=== PATIENT | female | born 1940 | race Caucasian/White ===

== ENCOUNTER 2024-04-17 18:38 | Inpatient (IN) | payer MEDICARE, SELFPAY ==
[2024-04-17] VITALS (26 sets, daily range): BP systolic 127–176; BP diastolic 84–101; PULSE 98–112; RESP 12–27; TEMP 36.7–36.8; O2SAT 80–100
--- NOTE | ~2024-04-17 | CT_ITS ---
CT chest high resolution wo co Ordering provider: Bryan Daniels MD History: 84 years Female with . F/u XR finding . Comparison: None. Technique: CT chest without IV contrast. Radiation reduction technique utilized. DLP is 144.09 mGy-cm. FINDINGS: VISUALIZED THORACIC INLET: Normal. MEDIASTINUM: Aorta/coronary arteries: Mild atheromatous disease. Heart/other: The heart is not enlarged. Lymph nodes: No mediastinal or hilar adenopathy. Prominent left hilum with possible lymphadenopathy. LUNGS: Atelectasis seen in the area distal to the left hilum Suggestive of atelectasis No pulmonary n odules or masses. No pneumothorax. Highly suggestive left mid diaphragmatic hernia is noted with etienne iation of the stomach and large bowel in the left lower thorax area. Underlying emphysematous changes. Dependent atelectatic changes. VISUALIZED UPPER ABDOMEN: Cholelithiasis. Possible mass in the right kidney area which measures 4.9 x 2.8 cm. Otherwise, the visualized upper abdomen is normal. MUSCULOSKELETAL: Soft tissues: The superficial soft tissues are normal. Bones: Age appropriate degenerative changes of the spine. . Healed ribs fractures seen in the right s econd, third, fourth and fifth ribs. Levoscoliosis. IMPRESSION: 1. 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 Possibility of eventration of the diaphragm is less likely. 2. Slightly prominent left hilum with adjacent atelectasis changes. 3. Cholelithiasis. 4. Possible mass in the right kidney. Further evaluation advised. Reviewed, dictated and finalized at location A.
--- NOTE | ~2024-04-17 | XR_ITS ---
XR chest 1V Ordering provider: Bryan Daniels MD History: 84 years Female with . LEFT HIP FX . Comparison: None. FINDINGS: MEDIASTINUM: The cardiac silhouette is slightly enlarged. Prominent brittnee. LUNGS: No infiltrates, effusions or pneumothorax. Prominent markings bilaterally. Elevated left hemidiaphragm. OTHER: Lucency is seen below the left hemidiaphragm which may be emphysematous bulla but distended st omach cannot be excluded. Further evaluation advised.. Degenerative changes of the spine. S-shaped sc oliosis. IMPRESSION: Lucency in the left lower lobe area and upper abdomen which may be emphysematous bulla. Distended sto mach cannot be excluded although less likely. Further evaluation advised. Reviewed, dictated and finalized at location A. IMPRESSION: Lucency in the left lower lobe area and upper abdomen which may be emphysematou s bulla. Distended stomach cannot be excluded although less likely. Further ethel luation advised.
--- NOTE | ~2024-04-17 | XR_ITS ---
XR hip LT 2V w AP pelvis Ordering provider: Bryan Daniels MD History: . FALL, L LEG SHORTENING AND ROTATION . Comparison: None. FINDINGS: BONES: Left intertrochanteric fracture. Old fracture in the right pubic bone. HIP JOINT SPACES: Bilateral hip osteoarthritic changes with narrowing of the joint space. SACROILIAC JOINT SPACES/LUMBAR SPINE: The sacroiliac joint spaces are narrowed bilaterally suggestive of osteoarthritic changes. Mild degenerative changes of the visualized lower lumbar spine. PUBIC SYMPHYSIS: Pubic symphysitis. SOFT TISSUES: Normal. IMPRESSION: No left intertrochanteric fracture. Right pubic bone fracture which is most likely old. Clinical correlation advised. Reviewed, dictated and finalized at location A. IMPRESSION: No left intertrochanteric fracture. Right pubic bone fracture which is most likely old. Clinical correlation advise sara
--- NOTE | ~2024-04-17 | XR_ITS ---
XR surgery orthopedic Indication: Left femoral intertrochanteric nail placement TECHNIQUE: Fluoroscopy used during Left femoral intertrochanteric nail placement performed by [Michael Brar MD] on 04/18/2024. 8 fluoroscopic images performed. 32 seconds of fluoroscopy. FINDINGS: Initial images demonstrate intertrochanteric fracture. Correlate with procedure note. IMPRESSION: Fluoroscopy used during Left femoral intertrochanteric nail placement. Reviewed, dictated and finalized at location B. IMPRESSION: Fluoroscopy used during Left femoral intertrochanteric nail placeme nt.
--- NOTE | 2024-04-17 19:41 | ECG_ITS ---
Test Date: 2024-04-17 21:00:09 Measurements Intervals [place] Rate: 103 P: 58 NM: 137 QRS: 24 QRSD: 91 T: 31 QT: 317 QTc: 416 Interpretive Statements SINUS TACHYCARDIA WITH OCCASIONAL SUPRAVENTRICULAR PREMATURE COMPLEXES BASELINE ARTIFACT- I, III, AVR, AVL, AVF, V5 BORDERLINE ECG No previous ECG available for comparison Electronically Signed On 04-18-2024 08:37:41 CDT by Dinesh Berumen D.O.
[2024-04-17] MEDS: ACETAMINOPHEN 500 MG TABLET 1000 MG PO (20:38)
--- NOTE | 2024-04-17 20:41 | ED.GENADULT ---
HPI - General Adult General Chief complaint: Extremity Injury, Lower Stated complaint: LEFT HIP FX Time Seen by Provider: 04/17/24 18:54 History of Present Illness HPI narrative: This is a pleasant 84-year-old female presenting to ED after a fall. She slipped on a carpet on her house and fell onto her left hip. She was unable to get up and crawled around her apartment so she called for help. This time patient has pain in her left hip no other injuries. She did not strike her head. She is not on blood thinners. Related Data Home Medications Medication Instructions Recorded Confirmed baclofen 5 mg tablet mg 04/17/24 04/17/24 diclofenac sodium 75 mg mg PO 04/17/24 tablet,delayed release folic acid 1 mg tablet 04/17/24 gabapentin 300 mg capsule mg 04/17/24 hydrochlorothiazide 25 mg tablet mg 04/17/24 leflunomide 10 mg tablet mg 04/17/24 levothyroxine 25 mcg tablet mcg 04/17/24 methotrexate sodium 2.5 mg tablet mg 04/17/24 pantoprazole 40 mg tablet,delayed mg PO 04/17/24 release prednisone 5 mg tablet mg 04/17/24 tramadol 50 mg tablet mg 04/17/24 Allergies Allergy/AdvReac Type Severity Reaction Status Date / Time No Known Allergies Allergy Verified 04/17/24 19:04 Exam Narrative: APPEARANCE: No apparent distress. Head: atraumatic. EYES: EOMI, NOSE: Atraumatic NECK: Trachea midline RESPIRATORY: No increased rate of breathing Clear to auscultation CARDIOVASCULAR: RRR, no peripheral edema ABDOMINAL: Non-distended soft nontender MUSCULOSKELETAl: Left leg is shortened and laterally rotated, Neurovascularly intact. NEURO: Alert. Moving 4/4 extremities SKIN:: Warm, dry. Normal color PSYCHIATRIC: Normal affect Course Vital Signs Vital signs: Vital Signs Temperature 98.1 F 04/17/24 18:40 Pulse Rate 100 04/17/24 18:40 Respiratory Rate 16 04/17/24 18:40 Blood Pressure 157/89 H 04/17/24 18:40 Pulse Oximetry 100 04/17/24 18:40 Oxygen Delivery Room Air 04/17/24 18:40 Temperature 98.2 F 04/17/24 22:31 Pulse Rate 99 04/17/24 22:46 Respiratory Rate 12 04/17/24 22:46 Blood Pressure 145/84 H 04/17/24 22:46 Pulse Oximetry 99 04/17/24 22:46 Oxygen Delivery Room Air 04/17/24 18:40 Medical Decision Making MDM Narrative Medical decision making narrative: -Course: 84-year-old female presenting after mechanical fall. X-ray shows a left intertrochanteric hip fracture. Impression states no fracture but that is a typo. Chest x-ray showed a left lower lobe lucency. 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 Patient has no respiratory distress or other symptoms. This likely chronic. Patient will be admitted to the hospital for further management. -DDX includes but is not limited to: Hip fracture, hip dislocation, sepsis UTI -Social determinants of health: Patient lives in a duplex by herself. denies drugs or alcohol -Independent interpretation of studies: White count 17.7. Likely stress reaction. Potassium 3.2 which was repleted Urine not indicative infection. Pelvis x-ray left intertrochanteric hip fracture. Chest x-ray showed left lower lobe lucency. This is confirmed to be diaphragmatic hernia stomach contents CT. Independent EKG interpretation: Rhythm [sinus], Rate [103], [place] -[normal], [place] -[normal], QRS [narrow], QTC [normal], T waves -[negative for concerning inversions], ST Segments - [Negative for concerning elevations] Final interpretations: Sinus tach -Discussion of Management/Consultants: Jorge Ty -Interventions: 1 L normal saline, Tylenol, 40 mg of potassium -Shared decision making / Disposition:admitted. Vital Signs Vital Signs: Vital Signs Temperature 98.1 F 04/17/24 18:40 Pulse Rate 100 04/17/24 18:40 Respiratory Rate 16 04/17/24 18:40 Blood Pressure 157/89 H 04/17/24 18:40 Pulse Oximetry 100 04/17/24 18:40 Oxygen Delivery Room Air 04/17/24 18:40 Temperature 98.2 F
[2024-04-17] MEDS: SODIUM CHLORIDE 0.9% IV 1,000 ML 999 ML IV CONT (20:42)
[2024-04-17 20:53] LABS: Basophils Percent Auto 0.2 % (0.2-1.2); Eosinophils Absolute Auto 0.1 K/mm3 (0-0.3); Eosinophils Percent Auto 0.4 % (0-4.4); Hematocrit 36.5 % (37.0-47.0); Hemoglobin 12.3 g/dL (12.0-15.0); Immature Granulocyte Absolute 0.15 K/mm3 (0.00-0.031); Immature Granulocyte Percent A 0.8 % (0-0.5); Lymphocytes Absolute Auto 1.13 K/mm3 (0.9-3.2); Lymphocytes Percent Auto 6.4 % (18.3-44.2); Mean Corpuscular HGB Conc 33.7 g/dl (32-36); Mean Corpuscular Hemoglobin 32.9 pg (26-34); Mean Corpuscular Volume 97.6 fl (80-100); Mean Platelet Volume 11.1 fl (7.4-10.4); Monocytes Absolute Auto 1.6 K/mm3 (0.1-0.6); Monocytes Percent Auto 8.9 % (2.6-8.5); Neutrophils Absolute Auto 14.8 K/mm3 (1.3-6.7); Neutrophils Percent Auto 83.3 % (45.5-73.1); Platelet Count Result 236 k/mm3 (150-375); Red Blood Count 3.74 M/mm3 (4.2-5.4); Red Cell Distribution Width 15.6 % (11.5-14.5); White Blood Count 17.7 K/mm3 (4.5-10.0)
[2024-04-17 20:55] LABS: Appearance Urine Clear (Clear); Bilirubin Urine Negative (Negative); Blood Urine Negative (Negative); Color Urine Yellow (Yellow); Glucose Urine UA Negative (Negative); Ketones Urine Negative (Negative); Leukocyte Esterase Ur Negative LEU/UL (Negative); Nitrate Urine Negative (Negative); Protein Urine Negative (Negative); Specific Grav Ur 1.011 (1.001-1.035); Urobilinogen Urine 0.2 mg/dL (<2.0)
[2024-04-17 21:02] LABS: Alanine Aminotransferase 19 U/L (6-35); Albumin Level 4.2 g/dL (3.5-5.1); Alkaline Phosphatase 67 U/L (38-126); Anion Gap 10 mmol/L (4-12); Aspartate Amino Transferase 27 U/L (14-36); Bilirubin,Total 0.4 mg/dL (0.2-1.3); Blood Urea Nitrogen 30 mg/dL (7-17); Calcium 9.4 mg/dL (8.4-10.2); Carbon Dioxide 28 mmol/L (22-30); Chloride 94 mmol/L (98-107); Estimated Glomerular Filt Rate > 60; Glucose 116 mg/dL (65-110); Potassium 3.2 mmol/L (3.4-5.0); Sodium 132 mmol/L (137-145)
[2024-04-17 21:04] LABS: Partial Thromboplastin Time 24.7 Seconds (22.3-36.8); Prothrombin Time 13.1 Seconds (11.1-14.7)
[2024-04-17 21:10] LABS: Add Urine Microscopic? NO
[2024-04-17] MEDS: POTASSIUM CHLORIDE 20 MEQ ER TABLET 40 MEQ PO (22:04)
[2024-04-18] VITALS (14 sets, daily range): BP systolic 129–167; BP diastolic 61–85; PULSE 92–107; RESP 12–18; TEMP 36.2–37; O2SAT 92–98; BMI 31.1
--- NOTE | 2024-04-18 01:22 | ADMGEN ---
This patient, Lita Damon, was admitted to [facility] Surg Room 324-02. Patient/family oriented to hospital policies and general routines including ID bracelet, bed and alarms, visiting hours, pain management, procedures, bathroom and other care routines, personal items, smoking policy, room service/diet, and visiting hours. Information on how to activate the Rapid Response Team has been discussed. Patient/Family are encouraged to report perceived risks to care and to ask questions if they do not understand what they are told or what they should do.
--- NOTE | 2024-04-18 07:44 | PM.CNOR ---
Assessment and Plan Assessment and plan (1) Closed intertrochanteric fracture of left hip: Qualifiers: Encounter type: initial encounter Fracture alignment: displaced Qualified Code(s): S72.142A - Displaced intertrochanteric fracture of left femur, initial encounter for closed fracture Code(s): S72.142A - Displaced intertrochanteric fracture of left femur, initial encounter for closed fracture Status: Acute Assessment and Plan: New patient evaluation for chief complaint left hip fracture. History, physical exam and radiographs reviewed with the patient. Discussed the condition, nature, etiology and course of natural history with the patient. Treatment options including surgical and nonoperative treatment were reviewed. Risks and benefits of each as well as alternatives reviewed. The patient's questions were answered. Conservative treatment ice, Pain control, mechanical DVT prophylaxis. patient desires operative treatment. Awaiting medical stabilization. Plan Discussed nonoperative and operative treatment options with the patient. Risks and benefits of each as well as alternatives were reviewed. All of the patient's questions were answered. The risks of surgery reviewed including but not limited to: Neurovascular damage, wound complication, infection, blood clot, pulmonary embolus, stroke, myocardial infarction, and anesthetic risks up to and including . Continued pain and possible dysfunction were explained. Specific risks of the procedure including later recurrence of deformity. No guarantees were offered. If hardware used, discussed risk of failure/ breakage and possible need for removal. If complications occur, the patient understands the need for further treatment, possible further surgery. Patient verbalizes understanding and wishes to proceed. PLAN: Left hip reduction with trochanteric nail History of Present Illness HPI Consult date: 04/18/24 Requesting physician: Bryan Daniels MD Chief complaint: Hip Fracture Narrative: 84-year-old woman who lives at home alone lost her balance and fell onto her left hip last night. Radiographs in the emergency room show left hip fracture. Admitted for further care. Complains of left hip pain. Denies loss of consciousness. She does have some pre-existing back pain which she is on baclofen but denies new or increased back pain. Denies neck pain. History of rheumatoid arthritis. Independent ambulator without assistive devices. Review of Systems Constitutional: Constitutional: Denies fever(s) Eyes: Eyes: Denies blurry vision ENT: Reports Normal hearing present Cardiovascular: Cardiovascular: Denies chest pain and Denies dyspnea Respiratory: Respiratory: Denies dyspnea and Denies wheezing Gastrointestinal: Gastrointestinal: Denies abdominal pain Genitourinary: Genitourinary: Denies urinary urgency Musculoskeletal: Musculoskeletal: Reports as per HPI and Denies numbness Integumentary/Breasts: Skin/Breast: Denies changing lesions and Denies sores Neurologic: Reports Normal hearing present, Denies behavioral changes, Denies confusion, Denies numbness and Denies convulsions Psychiatric: Psychiatric: Denies behavioral changes, Denies confusion and Denies hallucinations Endocrine: Endocrine: Denies heat intolerance Hematologic/Lymphatic: Hematologic/Lymphatic: Denies easy bleeding Allergic/Immunologic: Allergic/Immunologic: Denies wheezing PMFSH Past Medical History Medical History (Updated 04/18/24 @ 07:48 by Lyndon Brar MD) Closed intertrochanteric fracture of left hip Social History Social History Smoking status: Never smoker Alcohol intake: never Substance use: never Substance use type: does not use Do You Feel Safe in your Home?: Yes Lack of Transportation: No Lack of Food: Never True Current Housing: I Have Housing Concerned About Future Hous
[2024-04-18] MEDS: KETOROLAC 30 MG/ML VIAL (*BKC) IV PUSH (07:45)
--- NOTE | 2024-04-18 07:51 | WPDHPUPDATE1 ---
History and Physical Update Update Date/Time: 04/18/24 07:51 History and Physical has been reviewed, including an updated exam of the patient. There are NO changes in the patient's condition. Risks, benefits, and alternatives have been discussed and questions answered. Patient agrees to proceed with procedure.
[2024-04-18] MEDS: fentaNYL CITRATE INJ (*CRX) 100 MCG/2 ML VIAL 50 MCG IV PUSH (08:06)
[2024-04-18 08:09] LABS: Basophils Percent Auto 0.3 % (0.2-1.2); Eosinophils Absolute Auto 0.2 K/mm3 (0-0.3); Eosinophils Percent Auto 1.3 % (0-4.4); Hematocrit 35.1 % (37.0-47.0); Hemoglobin 11.7 g/dL (12.0-15.0); Immature Granulocyte Absolute 0.04 K/mm3 (0.00-0.031); Immature Granulocyte Percent A 0.3 % (0-0.5); Lymphocytes Absolute Auto 1.13 K/mm3 (0.9-3.2); Lymphocytes Percent Auto 9.6 % (18.3-44.2); Mean Corpuscular HGB Conc 33.3 g/dl (32-36); Mean Corpuscular Hemoglobin 32.7 pg (26-34); Mean Platelet Volume 10.9 fl (7.4-10.4); Monocytes Absolute Auto 1.5 K/mm3 (0.1-0.6); Monocytes Percent Auto 12.6 % (2.6-8.5); Neutrophils Absolute Auto 8.9 K/mm3 (1.3-6.7); Neutrophils Percent Auto 75.9 % (45.5-73.1); Platelet Count Result 194 k/mm3 (150-375); Red Blood Count 3.58 M/mm3 (4.2-5.4); Red Cell Distribution Width 15.5 % (11.5-14.5); White Blood Count 11.8 K/mm3 (4.5-10.0)
[2024-04-18 08:28] LABS: Anion Gap 8 mmol/L (4-12); Blood Urea Nitrogen 21 mg/dL (7-17); Calcium 8.9 mg/dL (8.4-10.2); Carbon Dioxide 31 mmol/L (22-30); Chloride 93 mmol/L (98-107); Estimated Glomerular Filt Rate > 60; Glucose 113 mg/dL (65-110); Potassium 3.1 mmol/L (3.4-5.0); Sodium 132 mmol/L (137-145)
--- NOTE | 2024-04-18 08:57 | PM.IMHP ---
H&P: HPI History of Present Illness Date/Time: 04/18/24 08:57 Chief Complaint: Fall with LT hip pain Narrative: Patient is an 84-year-old female who presented to the emergency department after a fall at home landing on her left hip with severe pain and inability to ambulate. The patient had crawled to her phone to call EMS. She denied losing consciousness, CP, SOB, N/V, dizziness or hitting her head. Patient reports a past medical history of rheumatoid arthritis and COPD. Initial findings in the ED showed a LT Closed intertrochanteric fracture of the hip. Labs were unremarkable other then hypokalemia at 3.1. Ortho was consulted and patient was admitted to the medical unit and went for surgical intervention same day 04/18/2024. Patient was seen post surgery mild to moderate pain in no acute distress. Denied CP, SOB, N/V, ABD pain, or dizziness. Review of Systems Review of Systems: All systems reviewed & are unremarkable except as noted in HPI and below PMFSH Past Medical History Medical History Closed intertrochanteric fracture of left hip Social History Social History Smoking status: Never smoker Alcohol intake: never Substance use: never Substance use type: does not use Do You Feel Safe in your Home?: Yes Lack of Transportation: No Lack of Food: Never True Current Housing: I Have Housing Concerned About Future Housing: No Difficulty Paying Gas/Electric Bills: No Difficulty Paying for Meds: No Currently Unemployed: YES Education: Don't Know Difficulty w/ Childcare or Family Care: No Spiritual care concerns: No Meds Home Medications and Allergies Home Medications Medication Instructions Recorded Confirmed Type baclofen 5 mg tablet 5 mg PO HS PRN Pain 04/17/24 04/18/24 History diclofenac sodium 75 mg 75 mg PO Q12H 04/17/24 04/18/24 History tablet,delayed release folic acid 1 mg tablet 1 mg PO DAILY 04/17/24 04/18/24 History gabapentin 300 mg capsule 600 mg PO HS PRN Pain 04/17/24 04/18/24 History hydrochlorothiazide 25 mg tablet 25 mg PO DAILY 04/17/24 04/18/24 History leflunomide 10 mg tablet 10 mg PO DAILY 04/17/24 04/18/24 History levothyroxine 25 mcg tablet 25 mcg PO DAILY 04/17/24 04/18/24 History methotrexate sodium 2.5 mg tablet 15 mg PO WEEKLY 04/17/24 04/18/24 History pantoprazole 40 mg tablet,delayed 40 mg PO DAILY 04/17/24 04/18/24 History release tramadol 50 mg tablet 50 mg PO TID PRN Pain 04/17/24 04/18/24 History ProAir HFA 2 puff PO DIRECTED PRN sob 04/18/24 04/18/24 History celecoxib 200 mg capsule 200 mg PO DAILY 04/18/24 04/18/24 History etanercept 50 mg/mL (1 mL) 50 mg subcut WEEKLY 04/18/24 04/18/24 History subcutaneous syringe (Enbrel) ipratropium-albuterol 1 amp PO TID 04/18/24 04/18/24 History Allergies Allergy/AdvReac Type Severity Reaction Status Date / Time No Known Allergies Allergy Verified 04/17/24 19:04 Vital Signs Vital Signs - 24 hr 04/17/24 18:40 04/17/24 18:49 04/17/24 19:00 Temperature 98.1 F Pulse Rate 100 100 99 Respiratory Rate 16 20 15 Blood Pressure 157/89 H Pulse Oximetry 100 97 97 Oxygen Delivery Room Air 04/17/24 19:01 04/17/24 19:15 04/17/24 19:16 Temperature Pulse Rate 102 H 99 103 H Respiratory Rate 17 19 16 Blood Pressure 152/85 H 174/94 H Pulse Oximetry 96 96 97 Oxygen Delivery 04/17/24 19:34 04/17/24 19:45 04/17/24 20:00 Temperature Pulse Rate 100 101 H 98 Respiratory Rate 22 H 13 16 Blood Pressure Pulse Oximetry 92 96 95 Oxygen Delivery 04/17/24 20:15 04/17/24 20:31 04/17/24 20:45 Temperature Pulse Rate 106 H 112 H 106 H Respiratory Rate 15 17 17 Blood Pressure Pulse Oximetry 80 L 98 94 Oxygen Delivery 04/17/24 21:00 04/17/24 21:30 04/17/24 21:31 Temperature Pulse Rate 103 H 103 H Respiratory Rate 13
[2024-04-18] MEDS: POTASSIUM CHLORIDE 20 MEQ ER TABLET 40 MEQ PO (09:37)
--- NOTE | 2024-04-18 10:11 | WPDANESEPPF ---
Anes - Initial Pre Proc Eval Procedure: Operation Date: 04/18/24 11:00 Proposed Procedures p Intertrochanteric Nail(Left) - Lyndon Brar MD Date/Time: 04/18/24 10:11 Surgeon: Rocío Bael APRN Pre Op Diagnosis: Hip Fracture Patient Data Age: 84 Gender: F Height: 1.42 m Weight: 63 kg Last Vital Signs Temp 37.0 C 04/18/24 06:00 Pulse 92 04/18/24 06:00 Resp 18 04/18/24 06:00 BP 167/76 H 04/18/24 06:00 Pulse Ox 96 04/18/24 06:00 O2 Del Method Room Air 04/18/24 08:00 Allergies Allergy/AdvReac Type Severity Reaction Status Date / Time No Known Allergies Allergy Verified 04/17/24 19:04 Home Medications Medication Instructions Recorded Confirmed Type baclofen 5 mg tablet 5 mg PO HS PRN Pain 04/17/24 04/18/24 History diclofenac sodium 75 mg 75 mg PO Q12H 04/17/24 04/18/24 History tablet,delayed release folic acid 1 mg tablet 1 mg PO DAILY 04/17/24 04/18/24 History gabapentin 300 mg capsule 600 mg PO HS PRN Pain 04/17/24 04/18/24 History hydrochlorothiazide 25 mg tablet 25 mg PO DAILY 04/17/24 04/18/24 History leflunomide 10 mg tablet 10 mg PO DAILY 04/17/24 04/18/24 History levothyroxine 25 mcg tablet 25 mcg PO DAILY 04/17/24 04/18/24 History methotrexate sodium 2.5 mg tablet 15 mg PO WEEKLY 04/17/24 04/18/24 History pantoprazole 40 mg tablet,delayed 40 mg PO DAILY 04/17/24 04/18/24 History release tramadol 50 mg tablet 50 mg PO TID PRN Pain 04/17/24 04/18/24 History ProAir HFA 2 puff PO DIRECTED PRN sob 04/18/24 04/18/24 History celecoxib 200 mg capsule 200 mg PO DAILY 04/18/24 04/18/24 History etanercept 50 mg/mL (1 mL) 50 mg subcut WEEKLY 04/18/24 04/18/24 History subcutaneous syringe (Enbrel) ipratropium-albuterol 1 amp PO TID 04/18/24 04/18/24 History Laboratory Tests 04/17/24 04/18/24 20:43 08:00 WBC 17.7 H K/mm3 11.8 H K/mm3 (4.5-10.0) (4.5-10.0) RBC 3.74 L M/mm3 3.58 L M/mm3 (4.2-5.4) (4.2-5.4) Hgb 12.3 g/dL 11.7 L g/dL (12.0-15.0) (12.0-15.0) Hct 36.5 L % 35.1 L % (37.0-47.0) (37.0-47.0) MCV 97.6 fl 98.0 fl (80-100) (80-100) MCH 32.9 pg 32.7 pg (26-34) (26-34) MCHC 33.7 g/dl 33.3 g/dl (32-36) (32-36) RDW 15.6 H % 15.5 H % (11.5-14.5) (11.5-14.5) Plt Count 236 k/mm3 194 k/mm3 (150-375) (150-375) MPV 11.1 H fl 10.9 H fl (7.4-10.4) (7.4-10.4) Immature Gran % (Auto) 0.8 H % 0.3 % (0-0.5) (0-0.5) Neut % (Auto) 83.3 H % 75.9 H % (45.5-73.1) (45.5-73.1) Lymph % (Auto) 6.4 L % 9.6 L % (18.3-44.2) (18.3-44.2) [place] % (Auto) 8.9 H % 12.6 H % (2.6-8.5) (2.6-8.5) Eos % (Auto) 0.4 % 1.3 % (0-4.4) (0-4.4) Baso % (Auto) 0.2 % 0.3 % (0.2-1.2) (0.2-1.2) Lymph # (Auto) 1.13 K/mm3 1.13 K/mm3 (0.9-3.2) (0.9-3.2) [place] # (Auto) 1.6 H K/mm3 1.5 H K/mm3 (0.1-0.6) (0.1-0.6) Eos # (Auto) 0.1 K/mm3 0.2 K/mm3 (0-0.3) (0-0.3) Baso # (Auto) 0.0 K/mm3 0.0 K/mm3 (0.0-0.1) (0.0-0.1) Abs Immat Gran (auto) 0.15 H K/mm3 0.04 H K/mm3 (0.00-0.031) (0.00-0.031) Absolute Neuts (auto) 14.8 H K/mm3 8.9 H K/mm3 (1.3-6.7) (1.3-6.7) Absolute Nucleated RBC 0.000 K/mm3 0.000 K/mm3 (0.0-0.012) (0.0-0.012) Nucleated RBC % 0.0 % 0.0 % (0.0-0.2) (0.0-0.2) PT 13.1 Seconds (11.1-14.7) INR 1.0 APTT 24.7 Seconds (22.3-36.8) Sodium 132 L mmol/L 132 L mmol/L (137-145) (137-145) Potassium 3.2 L mmol/L 3.1 L mmol/L (3.4-5.0) (3.4-5.0) Chloride 94 L mmol/L 93 L mmol/L (98-107) (98-107) Carbon Dioxide 28 mmol/L 31 H mmol/L (22-30) (22-30) Anion Gap 10 mmol/L 8 mmol/L (4-12) (4-12) BUN 30 H mg/dL 21 H mg/dL (7-17) (7-17) Creatinine 0.70 mg/dL 0.60 L mg/dL (0.7-1.0) (0.7-1.0) Estim Creat Clear Calc Not Reportable Not Reportable Estimated GFR > 60 > 60 (59 - ) (59 - ) Glucose 116 H mg/dL 113 H mg/d
--- NOTE | 2024-04-18 10:15 | PC.NURSE ---
To OR per hospital bed.
[2024-04-18] MEDS: ceFAZolin 2 GM/D5W 50 ML 2 GM/50 ML BAG IVPB ×2 (10:53→16:58)
[2024-04-18] MEDS: TRANEXAMIC ACID 1,000MG/ISO100 1,000 MG/100 ML BAG 200 MG IVPB (11:15)
[2024-04-18] MEDS: BUPIVACAINE/EPINEPHRINE 0.5% 10 ML VIAL 20 ML INFILTRATE (11:34)
--- NOTE | 2024-04-18 12:01 | W.PM.PROC2 ---
Procedure Note - Detailed Date of Procedure 04/18/24 Pre-op Diagnosis Left intertrochanteric Hip Fracture Post-op Diagnosis Same Procedure Performed left hip intramedullary trochanteric nail hip screw Surgeon Lyndon Brar MD [employer] assistant [employer] manager Anesthesia General Indications 84-year-old woman who fell on left side and sustained left hip intertrochanteric fracture. Presents for operative treatment Description of Procedure After informed consent the operative extremity was marked in the preoperative holding area. Patient received intravenous antibiotics. The patient was taken to the operative room, placed in the supine position, general anesthesia induced by the anesthesia team, and was placed on a fracture table with longitudinal traction applied to the left leg. The hip fracture was reduced to near anatomic position and verified with image intensification. A time-out was performed confirming the patient, site of the surgery and plan. The left lower extremity was prepped and draped sterilely from the knee to the iliac crest region using a ChloraPrep skin solution. Incision was made just proximal to greater trochanter down to the subcutaneous tissues. Hemostasis controlled with electrocautery. Blunt dissection through the fascia to the tip of the greater trochanter. A starter awl was placed at the tip of the greater trochanter into the medullary canal of the femur. This was checked with image intensification and was in good position. Intramedullary guide benton positioned. A one-step hand reaming done proximally. Intramedullary canal was reamed with a 12.5 millimeter flexible reamer. Measuring was then performed off of the guide benton. Neck angle selected off of preoperative radiographs temp plating. 125 degree 11 X 330mm Nail opened on the back table and assembled. This was then inserted over the guide benton to the correct depth. Guide benton removed. Lag screw was then placed with a stab incision over the lateral femur using a 10 blade knife. Blunt dissection down to the lateral side of the bone. Soft tissue protectors placed. Guide pin placed in the center center position of the femoral head and measured. 95 millimeter x 10 millimeter lag screw placed to correct depth and verified with image intensification. Traction released from the leg and compression of the fracture performed with the external compression device. Proximal locking screw placed. Distal locking of the nail necessary due to instability in the intramedullary canal and proximal femur. Stab incision made lateral distal thigh. Blunt dissection down lateral side of the femur. Image intensification used to guide drill which was placed through the locking hole. Distal femur measured and the appropriate size screw placed. Image intensification confirmed the placement through the locking hole. Final image intensification confirm reduction of the fracture and placement of the hardware. Wounds then thoroughly irrigated with antibiotic solution. Fascia repaired with 0 Vicryl interrupted suture. Subcutaneous tissue repaired with 00 Vicryl interrupted suture and skin repaired with andres. Sterile dressings applied. Patient then awoke from anesthesia, extubated, taken to recovery room stable condition. All sponge, needle and instrument counts correct at the end the case. Implants Arthrex trochanteric nail 330 x 11 mm 125 degree angle, 10 x 95 mm lag screw, 36 x 5 mm locking screw Estimated Blood Loss 200 Urine Output 750 Drains No Packing No Pathology None sent Complications None Condition Stable Disposition PACU [facility] Billing Surgery - Charge Forward: Surgery Billing ([id number])
[2024-04-18] MEDS: LACTATED RINGERS 1,000 ML 30 ML IV CONT ×2 (12:08→12:43)
[2024-04-18] MEDS: fentaNYL CITRATE INJ (*CRX) 100 MCG/2 ML VIAL 25 MCG IV PUSH ×5 (12:26→13:13)
--- NOTE | 2024-04-18 12:43 | PCPTNOTE ---
Pt having surgery today. Await post op orders.
--- NOTE | 2024-04-18 13:20 | PC.NURSE ---
Returned from OR per hospital bed.
[2024-04-18] MEDS: LEFLUNOMIDE 10 MG TABLET PO (13:41)
[2024-04-18] MEDS: LEVOTHYROXINE SODIUM 25 MCG TABLET PO (13:42)
[2024-04-18] MEDS: hydroCHLOROthiazide 25 MG TABLET PO (13:42)
[2024-04-18] MEDS: PANTOPRAZOLE 40 MG TABLET PO (13:42)
[2024-04-18] MEDS: FOLIC ACID 1 MG TABLET PO (13:42)
[2024-04-18] MEDS: DOCUSATE SODIUM 100 MG CAPSULE PO ×2 (13:42→16:06)
[2024-04-18] MEDS: HYDROcodone/acetaminophen (*CRX) 5-325 MG TABLET 1 TAB PO ×2 (14:11→20:55)
[2024-04-18] MEDS: HYDROmorphone HCL INJ (*CRX) 1 MG/ML SYR IV PUSH ×2 (14:44→16:57)
[2024-04-18] MEDS: DICLOFENAC SOD 75 MG TABLET.EC PO (16:06)
[2024-04-18] MEDS: ONDANSETRON INJ 4 MG/2 ML VIAL IV PUSH (16:23)
[2024-04-19] VITALS (9 sets, daily range): BP systolic 120–147; BP diastolic 59–78; PULSE 95–109; RESP 16–20; TEMP 36.1–36.7; O2SAT 92–98
[2024-04-19] MEDS: ceFAZolin 2 GM/D5W 50 ML 2 GM/50 ML BAG IVPB ×2 (01:40→11:04)
[2024-04-19] MEDS: HYDROmorphone HCL INJ (*CRX) 1 MG/ML SYR IV PUSH (03:45)
[2024-04-19] MEDS: LEVOTHYROXINE SODIUM 25 MCG TABLET PO (06:10)
[2024-04-19 07:26] LABS: Basophils Percent Auto 0.2 % (0.2-1.2); Eosinophils Percent Auto 0.1 % (0-4.4); Hematocrit 32.8 % (37.0-47.0); Immature Granulocyte Absolute 0.08 K/mm3 (0.00-0.031); Immature Granulocyte Percent A 0.5 % (0-0.5); Lymphocytes Absolute Auto 0.86 K/mm3 (0.9-3.2); Lymphocytes Percent Auto 5.2 % (18.3-44.2); Mean Corpuscular HGB Conc 33.5 g/dl (32-36); Mean Corpuscular Hemoglobin 33.4 pg (26-34); Mean Corpuscular Volume 99.7 fl (80-100); Mean Platelet Volume 11.2 fl (7.4-10.4); Monocytes Absolute Auto 1.7 K/mm3 (0.1-0.6); Monocytes Percent Auto 10.4 % (2.6-8.5); Neutrophils Absolute Auto 13.7 K/mm3 (1.3-6.7); Neutrophils Percent Auto 83.6 % (45.5-73.1); Platelet Count Result 176 k/mm3 (150-375); Red Blood Count 3.29 M/mm3 (4.2-5.4); Red Cell Distribution Width 15.4 % (11.5-14.5); White Blood Count 16.4 K/mm3 (4.5-10.0)
[2024-04-19 07:52] LABS: Albumin Level 3.7 g/dL (3.5-5.1); Alkaline Phosphatase 64 U/L (38-126); Bilirubin,Total 0.9 mg/dL (0.2-1.3); Calcium 8.9 mg/dL (8.4-10.2); Chloride 93 mmol/L (98-107); Glucose 109 mg/dL (65-110); Magnesium 1.5 mg/dL (1.6-2.3); Potassium 3.9 mmol/L (3.4-5.0); Sodium 131 mmol/L (137-145)
[2024-04-19 07:55] LABS: Alanine Aminotransferase 18 U/L (6-35); Anion Gap 7 mmol/L (4-12); Aspartate Amino Transferase 30 U/L (14-36); Blood Urea Nitrogen 20 mg/dL (7-17); Carbon Dioxide 31 mmol/L (22-30); Estimated Glomerular Filt Rate > 60
--- NOTE | 2024-04-19 07:57 | PM.PNORT ---
Progress Note: A&P Assessment and Plan (1) Closed intertrochanteric fracture of left hip: Qualifiers: Encounter type: subsequent encounter Fracture alignment: displaced Fracture healing: with routine healing Qualified Code(s): S72.142D - Displaced intertrochanteric fracture of left femur, subsequent encounter for closed fracture with routine healing Code(s): S72.142A - Displaced intertrochanteric fracture of left femur, initial encounter for closed fracture Status: Acute Assessment and Plan: Postoperative day 1. Left hip trochanteric nail. Pain improved today. Continue with pain control. PT/OT with weight-bearing as tolerated. Episode of shortness of breath last night improved with oxygen. Patient on inhalers at home. Will most likely need rehab placement when medically stable. Subjective Subjective Date/Time Seen: 04/19/24 07:57 Post Op day: 1 Principal diagnosis: Left hip intertrochanteric fracture Interval history: Patient resting comfortably. Awake and alert. Less confused today. Oriented to person, place and time. Complains of minimal pain left hip. Difficulty with breathing episode, shortness of breath overnight. Exam Const: General: comfortable; No acute distress Resp: Effort & Inspection: normal respiratory effort and no audible wheezes Extrem: Right lower extremity: lower leg ( Negative Homans sign), ankle Details: normal ROM ( dorsiflexion and plantar flexion intact) and foot Details: vascular exam Details: dorsalis pedis pulse present and normal capillary refill, tendon exam Details: active flexion normal and active extension normal and motor-sensory exam Details: light-touch normal Location: in all toes; no edema Left lower extremity: normal to inspection, ankle Details: normal ROM and foot Details: vascular exam Details: dorsalis pedis pulse present and normal capillary refill and motor-sensory exam light-touch normal in all toes; no edema Objective Data Vital Signs Vital Signs: Vital Signs - 24 hr 04/18/24 08:00 04/18/24 12:08 04/18/24 12:15 Temperature 97.9 F Pulse Rate 93 100 Respiratory Rate 14 14 Blood Pressure 131/61 150/75 H Pulse Oximetry 98 96 Oxygen Delivery Room Air Simple Face Mask Simple Face Mask Oxygen Flow Rate 8 8 04/18/24 12:30 04/18/24 12:45 04/18/24 13:00 Temperature Pulse Rate 107 H 106 H 105 H Respiratory Rate 12 12 12 Blood Pressure 129/71 137/76 155/72 H Pulse Oximetry 94 94 96 Oxygen Delivery Room Air Nasal Cannula Nasal Cannula Oxygen Flow Rate 2 2 04/18/24 13:25 04/18/24 13:40 04/18/24 14:10 Temperature 97.1 F L 97.1 F L 97.5 F L Pulse Rate 106 H 107 H 107 H Respiratory Rate 18 18 18 Blood Pressure 153/80 H 147/78 H 157/85 H Pulse Oximetry 92 93 95 Oxygen Delivery Oxygen Flow Rate 04/18/24 15:09 04/18/24 21:49 04/18/24 21:05 Temperature 97.2 F L 97.8 F Pulse Rate 100 95 Respiratory Rate 18 18 Blood Pressure 142/78 H 144/76 H Pulse Oximetry 94 97 98 Oxygen Delivery Nasal Cannula Oxygen Flow Rate 2 04/18/24 21:10 04/19/24 01:00 04/19/24 04:03 Temperature 97 F L 97.4 F L Pulse Rate 97 96 Respiratory Rate 18 20 Blood Pressure 147/78 H 128/64 Pulse Oximetry 95 92 97 Oxygen Delivery Room Air Oxygen Flow Rate Intake/Output Intake/Output: Intake & Output 04/16/24 04/17/24 04/18/24 04/19/24 23:59 23:59 23:59 23:59 Intake Total 1000 1700 350 Output Total 4060 550 Balance 1000 -2360 -200 Meds/Results Medications: Active Medications Generic Name Dose Route Start Last Admin Trade Name Freq PRN Reason Stop Dose Admin Acetaminophen 650 mg 04/18/24 08:45 Acetaminophen 325 Mg Tablet PO Q4H PRN Mild Pain (1-3) or Fever Hydrocodone Bitart/Acetaminophen 1 tab 04/18/24 13:14 04/18/24 20:55 Hydrocodone/Acetaminophen (*Crx) 5-325 Mg Tablet PO 1 tab Q4H PRN Administration Pain Rated 4-6 Albuterol/Ipratropium 3 ml 04/18/24 14:52
[2024-04-19 08:01] LABS: Vitamin D 25 Hydroxy 66.5 ng/mL
[2024-04-19] MEDS: LEFLUNOMIDE 10 MG TABLET PO (08:33)
[2024-04-19] MEDS: polyethylene glycoL 3350 17 GM POWD.PACK PO (08:33)
[2024-04-19] MEDS: FOLIC ACID 1 MG TABLET PO (08:33)
[2024-04-19] MEDS: PANTOPRAZOLE 40 MG TABLET PO (08:34)
[2024-04-19] MEDS: DICLOFENAC SOD 75 MG TABLET.EC PO ×2 (08:34→16:32)
[2024-04-19] MEDS: hydroCHLOROthiazide 25 MG TABLET PO (08:34)
[2024-04-19] MEDS: DOCUSATE SODIUM 100 MG CAPSULE PO ×2 (08:34→16:32)
[2024-04-19] MEDS: HYDROcodone/acetaminophen (*CRX) 5-325 MG TABLET 1 TAB PO ×2 (08:34→22:20)
[2024-04-19] MEDS: FONDAPARINUX SODIUM 2.5 MG/0.5 ML SYRINGE SUB-Q (08:37)
[2024-04-19] MEDS: ONDANSETRON INJ 4 MG/2 ML VIAL IV PUSH (08:42)
[2024-04-19] MEDS: MAGNESIUM SULF 2 GM/WATER 50ML 2 GM/50 ML BAG IVPB (11:57)
--- NOTE | 2024-04-19 12:10 | P.PNAN_ITS ---
Anes - Prog Note Post-Op Date/Time: 04/19/24 12:10 Cardiovascular status: normal Respiratory status: normal Airway patency: baseline Mental status: baseline Post-Op hydration status: normal Vital Signs: Last Vital Signs Temp 36.3 C L 04/19/24 04:03 Pulse 96 04/19/24 04:03 Resp 20 04/19/24 04:03 BP 128/64 04/19/24 04:03 Pulse Ox 95 04/19/24 07:58 O2 Del Method Room Air 04/19/24 08:34 O2 Flow Rate 2 04/18/24 21:05 FiO2 21 04/19/24 07:58 Pain Score (VAS): 12/07 I/O: Intake & Output 04/18/24 04/19/24 04/19/24 23:59 07:59 15:59 Intake Total 450 350 120 Output Total 550 Balance 450 -200 120 Laboratory Tests 04/19/24 07:05 04/19/24 07:05 04/19/24 07:05 WBC 16.4 H RBC 3.29 L Hgb 11.0 L Hct 32.8 L MCV 99.7 MCH 33.4 MCHC 33.5 RDW 15.4 H Plt Count 176 MPV 11.2 H Immature Gran % (Auto) 0.5 Neut % (Auto) 83.6 H Lymph % (Auto) 5.2 L Sandoval % (Auto) 10.4 H Eos % (Auto) 0.1 Baso % (Auto) 0.2 Lymph # (Auto) 0.86 L Sandoval # (Auto) 1.7 H Eos # (Auto) 0.0 Baso # (Auto) 0.0 Abs Immat Gran (auto) 0.08 H Absolute Neuts (auto) 13.7 H Absolute Nucleated RBC 0.000 Nucleated RBC % 0.0 Sodium 131 L Potassium 3.9 Chloride 93 L Carbon Dioxide 31 H Anion Gap 7 BUN 20 H Creatinine 0.60 L Estim Creat Clear Calc Not Reportable Estimated GFR > 60 Glucose 109 Calcium 8.9 Magnesium 1.5 L Total Bilirubin 0.9 AST 30 ALT 18 Alkaline Phosphatase 64 Total Protein 7.0 Albumin 3.7 Vitamin D 25-Hydroxy 66.5 Post-procedural complaints: none Patient Feedback: Patient satisfied with anesthetic care.
--- NOTE | 2024-04-19 13:47 | PM.IMPN ---
Progress Note: A&P Assessment and Plan (1) Closed intertrochanteric fracture of left hip: Qualifiers: Encounter type: subsequent encounter Fracture alignment: displaced Fracture healing: with routine healing Qualified Code(s): S72.142D - Displaced intertrochanteric fracture of left femur, subsequent encounter for closed fracture with routine healing Code(s): S72.142A - Displaced intertrochanteric fracture of left femur, initial encounter for closed fracture Status: Acute (2) Acute hypokalemia: Code(s): E87.6 - Hypokalemia Status: Acute (3) COPD (chronic obstructive pulmonary disease): Code(s): J44.9 - Chronic obstructive pulmonary disease, unspecified Status: Acute (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 Status: Acute Plan Closed intertrochanteric fracture of left hip Ortho consulted Surgery 04/18/2024 Pain control DVT prophylaxis SCD's PPI Incentive spirometer PT/OT post op Will need Rehab at Discharge lives alone Vitamin D level normal Hypokalemia-RESOLVED 3.1 POA replenished F/U BMP in the AM COPD: Supplemental Oxygen PRN DuoNebs as needed HX RA: Resume Diclofenac does not take Celecoxib anymore Code status: Full code per patient DVT prophylaxis: SCD/23 AC post-op per surgery Stress ulcer prophylaxis: Protonix 40 daily PT/OT notes: Post-op PT/OT pending Disposition: Admission to the medical unit post-op hip fracture repair. CC working on Rehab placement Time Spent With Patient Time with patient: 15 - 25 minutes Subjective Date/time seen: 04/19/24 13:47 Interval history: Admission: Patient is an 84-year-old female who presented to the emergency department after a fall at home landing on her left hip with severe pain and inability to ambulate. The patient had crawled to her phone to call EMS. She denied losing consciousness, CP, SOB, N/V, dizziness or hitting her head. Patient reports a past medical history of rheumatoid arthritis and COPD. Initial findings in the ED showed a LT Closed intertrochanteric fracture of the hip. Labs were unremarkable other then hypokalemia at 3.1. Ortho was consulted and patient was admitted to the medical unit and went for surgical intervention same day 04/18/2024. Patient was seen post surgery mild to moderate pain in no acute distress. Denied CP, SOB, N/V, ABD pain, or dizziness. 04/19/2024: Patient with no complaints state pain improved and site with no erythema, swelling, dry and intact. Patient had episodes of SOB last night but HX COPD improved with Duoneb treatment on RA now Review of Systems Review of Systems: All systems reviewed & are unremarkable except as noted in HPI and below Exam Narrative: Physical Exam: GENERAL: Alert and oriented x 3. No acute distress. EYES: EOMI. No scleral icterus. PERRLA. HEENT: Moist mucous membranes. LUNGS: Clear to auscultation bilaterally. No accessory muscle use. CARDIOVASCULAR: Regular rate and rhythm. No murmur. No JVD. S1-S2 ABDOMEN: Soft, non tenderness and non-distended. No palpable masses. EXTREMITIES: No edema. Non-tender SKIN: No rashes or lesions. Skin warm, dry. NEUROLOGIC: No focal neurological deficits. CN II-XII grossly intact PSYCHIATRIC: Appropriate mood and affect. Good judgement and insight. No visual or auditory hallucinations. No suicidal or homicidal ideation. Objective Data Vital Signs Vital Signs: Vital Signs - 24 hr 04/18/24 14:10 04/18/24 15:09 04/18/24 21:49 Temperature 97.5 F L 97.2 F L 97.8 F Pulse Rate 107 H 100 95 Respiratory Rate 18 18 18 Blood Pressure 157/85 H 142/78 H 144/76 H Pulse Oximetry 95 94 97 Oxygen Delivery Oxygen Flow Rate Fraction of Inspired Oxygen 04/18/24 21:05 04/18/24 21:10 04/19/24 01:00 Temperature 97 F L Pulse Rate 97 Respirator
[2024-04-19] MEDS: IPRATROPIUM 0.5 MG/ALBUTEROL SULFATE 2.5 MG AMPUL.NEB 3 ML INHALATION (17:10)
[2024-04-19] MEDS: ACETAMINOPHEN 325 MG TABLET 650 MG PO (22:19)
[2024-04-19] MEDS: BACLOFEN 5 MG TABLET PO (22:20)
[2024-04-20] VITALS (9 sets, daily range): BP systolic 115–134; BP diastolic 58–80; PULSE 67–117; RESP 18–20; TEMP 35.9–37.2; O2SAT 93–100
[2024-04-20] MEDS: HYDROcodone/acetaminophen (*CRX) 5-325 MG TABLET 1 TAB PO ×2 (05:29→20:34)
[2024-04-20] MEDS: LEVOTHYROXINE SODIUM 25 MCG TABLET PO (05:29)
[2024-04-20 06:38] LABS: Basophils Percent Auto 0.2 % (0.2-1.2); Eosinophils Absolute Auto 0.2 K/mm3 (0-0.3); Eosinophils Percent Auto 1.2 % (0-4.4); Hematocrit 31.4 % (37.0-47.0); Hemoglobin 10.3 g/dL (12.0-15.0); Immature Granulocyte Absolute 0.08 K/mm3 (0.00-0.031); Immature Granulocyte Percent A 0.7 % (0-0.5); Lymphocytes Absolute Auto 1.45 K/mm3 (0.9-3.2); Lymphocytes Percent Auto 11.8 % (18.3-44.2); Mean Corpuscular HGB Conc 32.8 g/dl (32-36); Mean Corpuscular Hemoglobin 32.4 pg (26-34); Mean Corpuscular Volume 98.7 fl (80-100); Mean Platelet Volume 11.4 fl (7.4-10.4); Monocytes Absolute Auto 1.1 K/mm3 (0.1-0.6); Monocytes Percent Auto 9.1 % (2.6-8.5); Neutrophils Absolute Auto 9.5 K/mm3 (1.3-6.7); Platelet Count Result 195 k/mm3 (150-375); Red Blood Count 3.18 M/mm3 (4.2-5.4); Red Cell Distribution Width 15.6 % (11.5-14.5); White Blood Count 12.3 K/mm3 (4.5-10.0)
[2024-04-20 07:02] LABS: Alanine Aminotransferase 14 U/L (6-35); Albumin Level 3.5 g/dL (3.5-5.1); Alkaline Phosphatase 70 U/L (38-126); Anion Gap 7 mmol/L (4-12); Aspartate Amino Transferase 34 U/L (14-36); Bilirubin,Total 0.7 mg/dL (0.2-1.3); Blood Urea Nitrogen 27 mg/dL (7-17); Calcium 8.9 mg/dL (8.4-10.2); Carbon Dioxide 32 mmol/L (22-30); Chloride 93 mmol/L (98-107); Estimated Glomerular Filt Rate 59; Glucose 105 mg/dL (65-110); Potassium 3.3 mmol/L (3.4-5.0); Sodium 132 mmol/L (137-145)
--- NOTE | 2024-04-20 07:59 | PM.PNORT ---
Progress Note: A&P Assessment and Plan (1) Closed intertrochanteric fracture of left hip: Qualifiers: Encounter type: subsequent encounter Fracture alignment: displaced Fracture healing: with routine healing Qualified Code(s): S72.142D - Displaced intertrochanteric fracture of left femur, subsequent encounter for closed fracture with routine healing Code(s): S72.142A - Displaced intertrochanteric fracture of left femur, initial encounter for closed fracture Status: Acute Assessment and Plan: Postoperative day 2. Left hip trochanteric nail. Continue with pain control. PT/OT with weight-bearing as tolerated. Patient on inhalers at home. rehab placement when medically stable. Subjective Subjective Date/Time Seen: 04/20/24 07:59 Post Op day: 2 Principal diagnosis: Left hip intertrochanteric fracture Interval history: Patient resting comfortably. Breathing better overnight. Exam Const: General: comfortable; No acute distress Resp: Effort & Inspection: normal respiratory effort and no audible wheezes Extrem: Right lower extremity: lower leg ( Negative Homans sign), ankle Details: normal ROM ( dorsiflexion and plantar flexion intact) and foot Details: vascular exam Details: dorsalis pedis pulse present and normal capillary refill, tendon exam Details: active flexion normal and active extension normal and motor-sensory exam Details: light-touch normal Location: in all toes; no edema Left lower extremity: normal to inspection, ankle Details: normal ROM and foot Details: vascular exam Details: dorsalis pedis pulse present and normal capillary refill and motor-sensory exam light-touch normal in all toes; no edema Objective Data Vital Signs Vital Signs: Vital Signs - 24 hr 04/19/24 08:34 04/19/24 10:59 04/19/24 14:14 Temperature 97.8 F Pulse Rate 98 98 Respiratory Rate 16 18 Blood Pressure 120/67 145/78 H Pulse Oximetry 98 98 Oxygen Delivery Room Air 04/19/24 17:15 04/19/24 17:19 04/19/24 20:00 Temperature 97.4 F L Pulse Rate 97 98 109 H Respiratory Rate 16 18 18 Blood Pressure 122/59 L Pulse Oximetry 98 Oxygen Delivery 04/19/24 23:26 04/19/24 20:00 04/20/24 04:00 Temperature 98.0 F 97.4 F L Pulse Rate 95 96 Respiratory Rate 20 18 Blood Pressure 129/59 L 115/65 Pulse Oximetry 97 94 Oxygen Delivery Room Air Intake/Output Intake/Output: Intake & Output 04/17/24 04/18/24 04/19/24 04/20/24 23:59 23:59 23:59 23:59 Intake Total 1000 1700 690 150 Output Total 4060 550 Balance 1000 -2360 140 150 Meds/Results Medications: Active Medications Generic Name Dose Route Start Last Admin Trade Name Freq PRN Reason Stop Dose Admin Acetaminophen 650 mg 04/18/24 08:45 04/19/24 22:19 Acetaminophen 325 Mg Tablet PO 650 mg Q4H PRN Administration Mild Pain (1-3) or Fever Hydrocodone Bitart/Acetaminophen 1 tab 04/18/24 13:14 04/20/24 05:29 Hydrocodone/Acetaminophen (*Crx) 5-325 Mg Tablet PO 1 tab Q4H PRN Administration Pain Rated 4-6 Albuterol/Ipratropium 3 ml 04/18/24 14:52 04/19/24 17:10 Ipratropium 0.5 Mg/Albuterol Sulfate 2.5 Mg Ampul.Neb 3 Ml INHALATION 3 ml Q6HRT PRN Administration Shortness Of Breath Baclofen 5 mg 04/18/24 13:14 04/19/24 22:20 Baclofen 5 Mg Tablet PO 5 mg HS PRN Administration Pain/SPASM Diclofenac Sodium 75 mg 04/18/24 17:00 04/19/24 16:32 Diclofenac Sod 75 Mg Tablet.Ec PO 75 mg BIDWM JARETT Administration Docusate Sodium 100 mg 04/18/24 09:00 04/19/24 16:32 Docusate Sodium 100 Mg Capsule PO 100 mg BID JARETT Administration Folic Acid 1 mg 04/18/24 09:00 04/19/24 08:33 Folic Acid 1 Mg Tablet PO 1 mg DAILY JARETT Administration Fondaparinux 2.5 mg 04/19/24 09:00 04/19/24 08:37 Fondaparinux Sodium 2.5 Mg/0.5 Ml Syringe SUB-Q 2.5 mg DAILY JARETT Administration Gabapentin 600 mg 04/18/24 08:48 Gabapentin 300 Mg Cap
[2024-04-20] MEDS: FOLIC ACID 1 MG TABLET PO (09:41)
[2024-04-20] MEDS: DOCUSATE SODIUM 100 MG CAPSULE PO ×2 (09:41→17:49)
[2024-04-20] MEDS: DICLOFENAC SOD 75 MG TABLET.EC PO ×2 (09:41→17:49)
[2024-04-20] MEDS: PANTOPRAZOLE 40 MG TABLET PO (09:41)
[2024-04-20] MEDS: LEFLUNOMIDE 10 MG TABLET PO (09:41)
[2024-04-20] MEDS: polyethylene glycoL 3350 17 GM POWD.PACK PO (09:41)
[2024-04-20] MEDS: hydroCHLOROthiazide 25 MG TABLET PO (09:41)
[2024-04-20] MEDS: FONDAPARINUX SODIUM 2.5 MG/0.5 ML SYRINGE SUB-Q (09:44)
[2024-04-20] MEDS: POTASSIUM CHLORIDE 20 MEQ ER TABLET 40 MEQ PO (09:44)
[2024-04-20] MEDS: IPRATROPIUM 0.5 MG/ALBUTEROL SULFATE 2.5 MG AMPUL.NEB 3 ML INHALATION ×3 (12:10→23:52)
--- NOTE | 2024-04-20 12:50 | PM.IMPN ---
Progress Note: A&P Assessment and Plan (1) Closed intertrochanteric fracture of left hip: Qualifiers: Encounter type: subsequent encounter Fracture alignment: displaced Fracture healing: with routine healing Qualified Code(s): S72.142D - Displaced intertrochanteric fracture of left femur, subsequent encounter for closed fracture with routine healing Code(s): S72.142A - Displaced intertrochanteric fracture of left femur, initial encounter for closed fracture Status: Acute (2) Acute hypokalemia: Code(s): E87.6 - Hypokalemia Status: Acute (3) COPD (chronic obstructive pulmonary disease): Code(s): J44.9 - Chronic obstructive pulmonary disease, unspecified Status: Acute (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 Status: Acute Plan Closed intertrochanteric fracture of left hip Ortho consulted Surgery 04/18/2024 Pain control DVT prophylaxis SCD's PPI Incentive spirometer PT/OT post op Will need Rehab at Discharge lives alone Vitamin D level normal Hypokalemia-RESOLVED 3.1 POA replenished F/U BMP in the AM COPD: Supplemental Oxygen PRN DuoNebs as needed HX RA: Resume Diclofenac does not take Celecoxib anymore Code status: Full code per patient DVT prophylaxis: SCD/23 AC post-op per surgery Stress ulcer prophylaxis: Protonix 40 daily PT/OT notes: Post-op PT/OT pending Disposition: Admission to the medical unit post-op hip fracture repair. CC working on Rehab placement Time Spent With Patient Time with patient: 15 - 25 minutes Subjective Date/time seen: 04/20/24 12:50 Interval history: Admission: Patient is an 84-year-old female who presented to the emergency department after a fall at home landing on her left hip with severe pain and inability to ambulate. The patient had crawled to her phone to call EMS. She denied losing consciousness, CP, SOB, N/V, dizziness or hitting her head. Patient reports a past medical history of rheumatoid arthritis and COPD. Initial findings in the ED showed a LT Closed intertrochanteric fracture of the hip. Labs were unremarkable other then hypokalemia at 3.1. Ortho was consulted and patient was admitted to the medical unit and went for surgical intervention same day 04/18/2024. Patient was seen post surgery mild to moderate pain in no acute distress. Denied CP, SOB, N/V, ABD pain, or dizziness. 04/19/2024: Patient with no complaints state pain improved and site with no erythema, swelling, dry and intact. Patient had episodes of SOB last night but HX COPD improved with Duoneb treatment on RA now 04/20/2024: Patient comfortable with no complaints states pain is well controlled and she is working with PT well. Site non-tender, no swelling, clean and dry. No fevers over night and WBC down trend post-op. Currently waiting on Rehab placement. Review of Systems Review of Systems: All systems reviewed & are unremarkable except as noted in HPI and below Exam Narrative: Physical Exam: GENERAL: Alert and oriented x 3. No acute distress. EYES: EOMI. No scleral icterus. PERRLA. HEENT: Moist mucous membranes. LUNGS: Clear to auscultation bilaterally. No accessory muscle use. CARDIOVASCULAR: Regular rate and rhythm. No murmur. No JVD. S1-S2 ABDOMEN: Soft, non tenderness and non-distended. No palpable masses. EXTREMITIES: No edema. Non-tender SKIN: No rashes or lesions. Skin warm, dry. Incision clean dry no erythema, swelling or tenderness to LT lateral hip NEUROLOGIC: No focal neurological deficits. CN II-XII grossly intact PSYCHIATRIC: Appropriate mood and affect. Good judgement and insight. No visual or auditory hallucinations. No suicidal or homicidal ideation. Objective Data Vital Signs Vital Signs: Vital Signs - 24 hr 04/19/24 14:14 04/19/24 17:15 04/19/24 17:19 Temper
[2024-04-20] MEDS: ACETAMINOPHEN 325 MG TABLET 650 MG PO (20:33)
[2024-04-20] MEDS: GABAPENTIN 300 MG CAPSULE 600 MG PO (20:33)
[2024-04-21] VITALS (11 sets, daily range): BP systolic 111–137; BP diastolic 48–75; PULSE 88–118; RESP 16–20; TEMP 36.1–36.7; O2SAT 94–98
[2024-04-21] MEDS: LEVOTHYROXINE SODIUM 25 MCG TABLET PO (05:56)
[2024-04-21 06:33] LABS: Basophils Percent Auto 0.5 % (0.2-1.2); Eosinophils Absolute Auto 0.2 K/mm3 (0-0.3); Eosinophils Percent Auto 2.2 % (0-4.4); Hemoglobin 9.1 g/dL (12.0-15.0); Immature Granulocyte Absolute 0.05 K/mm3 (0.00-0.031); Immature Granulocyte Percent A 0.6 % (0-0.5); Lymphocytes Absolute Auto 1.55 K/mm3 (0.9-3.2); Lymphocytes Percent Auto 18.8 % (18.3-44.2); Mean Corpuscular HGB Conc 33.7 g/dl (32-36); Mean Corpuscular Hemoglobin 33.7 pg (26-34); Mean Platelet Volume 11.2 fl (7.4-10.4); Monocytes Absolute Auto 0.8 K/mm3 (0.1-0.6); Monocytes Percent Auto 9.1 % (2.6-8.5); Neutrophils Absolute Auto 5.7 K/mm3 (1.3-6.7); Neutrophils Percent Auto 68.8 % (45.5-73.1); Platelet Count Result 195 k/mm3 (150-375); Red Cell Distribution Width 15.7 % (11.5-14.5); White Blood Count 8.3 K/mm3 (4.5-10.0)
[2024-04-21 06:40] LABS: Alanine Aminotransferase 12 U/L (6-35); Albumin Level 3.2 g/dL (3.5-5.1); Alkaline Phosphatase 71 U/L (38-126); Anion Gap 6 mmol/L (4-12); Aspartate Amino Transferase 28 U/L (14-36); Bilirubin,Total 0.7 mg/dL (0.2-1.3); Blood Urea Nitrogen 28 mg/dL (7-17); Calcium 8.5 mg/dL (8.4-10.2); Carbon Dioxide 31 mmol/L (22-30); Chloride 98 mmol/L (98-107); Estimated Glomerular Filt Rate > 60; Glucose 101 mg/dL (65-110); Potassium 3.5 mmol/L (3.4-5.0); Sodium 135 mmol/L (137-145)
[2024-04-21] MEDS: IPRATROPIUM 0.5 MG/ALBUTEROL SULFATE 2.5 MG AMPUL.NEB 3 ML INHALATION ×3 (08:18→23:17)
--- NOTE | 2024-04-21 08:47 | PM.IMPN ---
Progress Note: A&P Assessment and Plan (1) Closed intertrochanteric fracture of left hip: Qualifiers: Encounter type: subsequent encounter Fracture alignment: displaced Fracture healing: with routine healing Qualified Code(s): S72.142D - Displaced intertrochanteric fracture of left femur, subsequent encounter for closed fracture with routine healing Code(s): S72.142A - Displaced intertrochanteric fracture of left femur, initial encounter for closed fracture Status: Acute (2) Acute hypokalemia: Code(s): E87.6 - Hypokalemia Status: Acute (3) COPD (chronic obstructive pulmonary disease): Code(s): J44.9 - Chronic obstructive pulmonary disease, unspecified Status: Acute (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 Status: Acute Plan Closed intertrochanteric fracture of left hip Ortho consulted Surgery 04/18/2024 Pain control DVT prophylaxis SCD's PPI Incentive spirometer PT/OT post op Will need Rehab at Discharge lives alone Vitamin D level normal Hypokalemia-RESOLVED 3.1 POA replenished F/U BMP in the AM COPD: Supplemental Oxygen PRN DuoNebs as needed HX RA: Resume Diclofenac does not take Celecoxib anymore Code status: Full code per patient DVT prophylaxis: SCD/23 AC post-op per surgery Stress ulcer prophylaxis: Protonix 40 daily PT/OT notes: Post-op PT/OT pending Disposition: Admission to the medical unit post-op hip fracture repair. CC working on Rehab placement Time Spent With Patient Time with patient: 15 - 25 minutes Subjective Date/time seen: 04/21/24 08:47 Interval history: Admission: Patient is an 84-year-old female who presented to the emergency department after a fall at home landing on her left hip with severe pain and inability to ambulate. The patient had crawled to her phone to call EMS. She denied losing consciousness, CP, SOB, N/V, dizziness or hitting her head. Patient reports a past medical history of rheumatoid arthritis and COPD. Initial findings in the ED showed a LT Closed intertrochanteric fracture of the hip. Labs were unremarkable other then hypokalemia at 3.1. Ortho was consulted and patient was admitted to the medical unit and went for surgical intervention same day 04/18/2024. Patient was seen post surgery mild to moderate pain in no acute distress. Denied CP, SOB, N/V, ABD pain, or dizziness. 04/19/2024: Patient with no complaints state pain improved and site with no erythema, swelling, dry and intact. Patient had episodes of SOB last night but HX COPD improved with Duoneb treatment on RA now 04/20/2024: Patient comfortable with no complaints states pain is well controlled and she is working with PT well. Site non-tender, no swelling, clean and dry. No fevers over night and WBC down trend post-op. Currently waiting on Rehab placement. 04/21/2024: Patient doing well, labs stable. Patient did report some SOB but no different from baseline scheduled duonebs. Waiting on insurance auth for rehab. Review of Systems Review of Systems: All systems reviewed & are unremarkable except as noted in HPI and below Exam Narrative: Physical Exam: GENERAL: Alert and oriented x 3. No acute distress. EYES: EOMI. No scleral icterus. PERRLA. HEENT: Moist mucous membranes. LUNGS: Clear to auscultation bilaterally. No accessory muscle use. CARDIOVASCULAR: Regular rate and rhythm. No murmur. No JVD. S1-S2 ABDOMEN: Soft, non tenderness and non-distended. No palpable masses. EXTREMITIES: No edema. Non-tender SKIN: No rashes or lesions. Skin warm, dry. Incision clean dry no erythema, swelling or tenderness to LT lateral hip NEUROLOGIC: No focal neurological deficits. CN II-XII grossly intact PSYCHIATRIC: Appropriate mood and affect. Good judgement and insight. No visual or auditory hallucinatio
[2024-04-21] MEDS: DOCUSATE SODIUM 100 MG CAPSULE PO ×2 (08:57→17:18)
[2024-04-21] MEDS: LEFLUNOMIDE 10 MG TABLET PO (08:57)
[2024-04-21] MEDS: PANTOPRAZOLE 40 MG TABLET PO (08:57)
[2024-04-21] MEDS: hydroCHLOROthiazide 25 MG TABLET PO (08:58)
[2024-04-21] MEDS: DICLOFENAC SOD 75 MG TABLET.EC PO ×2 (08:58→17:18)
[2024-04-21] MEDS: polyethylene glycoL 3350 17 GM POWD.PACK PO (08:58)
[2024-04-21] MEDS: FOLIC ACID 1 MG TABLET PO (08:58)
[2024-04-21] MEDS: FONDAPARINUX SODIUM 2.5 MG/0.5 ML SYRINGE SUB-Q (08:58)
--- NOTE | 2024-04-21 09:31 | PM.PNORT ---
Progress Note: A&P Assessment and Plan (1) Closed intertrochanteric fracture of left hip: Qualifiers: Encounter type: subsequent encounter Fracture alignment: displaced Fracture healing: with routine healing Qualified Code(s): S72.142D - Displaced intertrochanteric fracture of left femur, subsequent encounter for closed fracture with routine healing Code(s): S72.142A - Displaced intertrochanteric fracture of left femur, initial encounter for closed fracture Status: Acute Assessment and Plan: POD #3: Left hip trochanteric nail. Continue with pain control. PT/OT with weight-bearing as tolerated. Patient on inhalers at home. Rehab placement when medically stable. Plan Reviewed history, exam, radiographs and current labs with attending MD and covering surgeon, Dr. Brar, who agrees with current plan as indicated above. No further recommendations from Dr. Brar at this time. Subjective Subjective Date/Time Seen: 04/21/24 09:31 Post Op day: 3 Principal diagnosis: Left hip intertrochanteric fracture Interval history: Patient resting comfortably. Up in chair. No new complaints. Review of Systems Review of Systems: All systems reviewed & are unremarkable except as noted in HPI and below Exam Const: General: comfortable; No acute distress Resp: Effort & Inspection: normal respiratory effort and no audible wheezes Extrem: Right lower extremity: lower leg ( Negative Homans sign), ankle Details: normal ROM ( dorsiflexion and plantar flexion intact) and foot Details: vascular exam Details: dorsalis pedis pulse present and normal capillary refill, tendon exam Details: active flexion normal and active extension normal and motor-sensory exam Details: light-touch normal Location: in all toes; no edema Left lower extremity: normal to inspection, ankle Details: normal ROM and foot Details: vascular exam Details: dorsalis pedis pulse present and normal capillary refill and motor-sensory exam light-touch normal in all toes; no edema Objective Data Vital Signs Vital Signs: Vital Signs - 24 hr 04/20/24 09:41 04/20/24 11:41 04/20/24 12:10 Temperature 35.9 C L Pulse Rate 103 H 100 Respiratory Rate 20 18 Blood Pressure 123/58 L Pulse Oximetry 95 93 Oxygen Delivery Room Air Room Air 04/20/24 12:10 04/20/24 12:20 04/20/24 16:00 Temperature Pulse Rate 100 103 H 95 Respiratory Rate 18 18 18 Blood Pressure Pulse Oximetry Oxygen Delivery 04/20/24 16:12 04/20/24 16:00 04/20/24 20:00 Temperature 36.1 C L 37.2 C Pulse Rate 98 102 H 117 H Respiratory Rate 18 18 18 Blood Pressure 121/59 L 134/65 Pulse Oximetry 100 98 Oxygen Delivery 04/20/24 23:52 04/21/24 00:00 04/21/24 00:00 Temperature 36.6 C Pulse Rate 92 88 94 Respiratory Rate 18 18 18 Blood Pressure 111/48 L Pulse Oximetry 94 Oxygen Delivery 04/20/24 20:00 04/21/24 04:00 04/21/24 08:18 Temperature 36.7 C Pulse Rate 88 Respiratory Rate 18 Blood Pressure 131/64 Pulse Oximetry 96 95 Oxygen Delivery Room Air Room Air 04/21/24 08:18 04/21/24 08:28 04/21/24 08:00 Temperature 36.1 C L Pulse Rate 102 H 88 118 H Respiratory Rate 18 18 16 Blood Pressure 137/64 Pulse Oximetry 97 Oxygen Delivery Intake/Output Intake/Output: Intake & Output 04/18/24 04/19/24 04/20/24 04/21/24 23:59 23:59 23:59 23:59 Intake Total 1700 690 628 100 Output Total 4060 550 Balance -2360 140 628 100 Meds/Results Medications: Active Medications Generic Name Dose Route Start Last Admin Trade Name Freq PRN Reason Stop Dose Admin Acetaminophen 650 mg 04/18/24 08:45 04/20/24 20:33 Acetaminophen 325 Mg Tablet PO 650 mg Q4H PRN Administration Mild Pain (1-3) or Fever Hydrocodone Bitart/Acetaminophen 1 tab 04/18/24 13:14 04/20/24 20:34 Hydrocodone/Acetaminophen (*Crx) 5-325 Mg Tablet PO 1 tab Q4H PRN Administration Pain Rated 4-6 [place]
--- NOTE | 2024-04-21 11:06 | PM.DS ---
DS: Admitting Diagnosis Discharge Date 04/21/2024 Admitting Diagnosis Closed intertrochanteric fracture of left hip DS: Discharge Diagnosis Discharge Diagnosis (1) Closed intertrochanteric fracture of left hip: Qualifiers: Encounter type: subsequent encounter Fracture alignment: displaced Fracture healing: with routine healing Qualified Code(s): S72.142D - Displaced intertrochanteric fracture of left femur, subsequent encounter for closed fracture with routine healing Code(s): S72.142A - Displaced intertrochanteric fracture of left femur, initial encounter for closed fracture Status: Acute (2) Acute hypokalemia: Code(s): E87.6 - Hypokalemia Status: Acute (3) COPD (chronic obstructive pulmonary disease): Code(s): J44.9 - Chronic obstructive pulmonary disease, unspecified Status: Acute (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 Status: Acute Plan Closed intertrochanteric fracture of left hip Ortho consulted Surgery 04/18/2024 Pain control DVT prophylaxis SCD's PPI Incentive spirometer PT/OT post op Will need Rehab at Discharge lives alone Vitamin D level normal Hypokalemia-RESOLVED 3.1 POA replenished F/U BMP in the AM COPD: Supplemental Oxygen PRN DuoNebs as needed HX RA: Resume Diclofenac does not take Celecoxib anymore Code status: Full code per patient DVT prophylaxis: SCD/23 AC post-op per surgery Stress ulcer prophylaxis: Protonix 40 daily PT/OT notes: Post-op PT/OT pending Disposition: Discharged to [facility] for continued PT/OT DS: Summary Hospital Course Reason for hospitalization: Closed intertrochanteric fracture of left hip Hospital Course: Admission: Patient is an 84-year-old female who presented to the emergency department after a fall at home landing on her left hip with severe pain and inability to ambulate. The patient had crawled to her phone to call EMS. She denied losing consciousness, CP, SOB, N/V, dizziness or hitting her head. Patient reports a past medical history of rheumatoid arthritis and COPD. Initial findings in the ED showed a LT Closed intertrochanteric fracture of the hip. Labs were unremarkable other then hypokalemia at 3.1. Ortho was consulted and patient was admitted to the medical unit and went for surgical intervention same day 04/18/2024. Patient was seen post surgery mild to moderate pain in no acute distress. Denied CP, SOB, N/V, ABD pain, or dizziness. 04/19/2024: Patient with no complaints state pain improved and site with no erythema, swelling, dry and intact. Patient had episodes of SOB last night but HX COPD improved with Duoneb treatment on RA now 04/20/2024: Patient comfortable with no complaints states pain is well controlled and she is working with PT well. Site non-tender, no swelling, clean and dry. No fevers over night and WBC down trend post-op. Currently waiting on Rehab placement. 04/21/2024: DISCHARGED Patient doing well, labs stable denied hip pain. Patient did report some SOB but no different from baseline scheduled duonebs. Insurance authorization received and patient was discharged to [facility] for continued PT/OT, ASA BID for DVT prophylaxis Time Spent with Patient Time attestation: Total time spent providing and/or coordinating discharge services: Time spent: Greater than 30 minutes Exam Narrative: Physical Exam: GENERAL: Alert and oriented x 3. No acute distress. EYES: EOMI. No scleral icterus. PERRLA. HEENT: Moist mucous membranes. LUNGS: Clear to auscultation bilaterally. No accessory muscle use. CARDIOVASCULAR: Regular rate and rhythm. No murmur. No JVD. S1-S2 ABDOMEN: Soft, non tenderness and non-distended. No palpable masses. EXTREMITIES: No edema. Non-tender SKIN: No rashes or lesions. Skin warm, dry. Incision
[2024-04-21 12:53] LABS: SARS-CoV-2 RNA PCR Positive (Negative)
--- NOTE | 2024-04-21 14:23 | PM.IMPN ---
Progress Note: A&P Assessment and Plan (1) Closed intertrochanteric fracture of left hip: Qualifiers: Encounter type: subsequent encounter Fracture alignment: displaced Fracture healing: with routine healing Qualified Code(s): S72.142D - Displaced intertrochanteric fracture of left femur, subsequent encounter for closed fracture with routine healing Code(s): S72.142A - Displaced intertrochanteric fracture of left femur, initial encounter for closed fracture Status: Acute (2) Acute hypokalemia: Code(s): E87.6 - Hypokalemia Status: Acute (3) COPD (chronic obstructive pulmonary disease): Code(s): J44.9 - Chronic obstructive pulmonary disease, unspecified Status: Acute (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 Status: Acute Plan Plan Closed intertrochanteric fracture of left hip Ortho consulted Surgery 04/18/2024 Pain control DVT prophylaxis SCD's PPI Incentive spirometer PT/OT post op Will need Rehab at Discharge lives alone Vitamin D level normal Hypokalemia-RESOLVED 3.1 POA replenished F/U BMP in the AM COPD: Supplemental Oxygen PRN DuoNebs as needed HX RA: Resume Diclofenac does not take Celecoxib anymore Code status: Full code per patient DVT prophylaxis: SCD/23 AC post-op per surgery Stress ulcer prophylaxis: Protonix 40 daily PT/OT notes: Post-op PT/OT pending Disposition: Admission to the medical unit post-op hip fracture repair. CC working on Rehab placement [facility] would not take because she tested positive for COVID Time Spent With Patient Time with patient: 15 - 25 minutes Subjective Date/time seen: 04/21/24 14:23 Interval history: Hospital Course: Admission: Patient is an 84-year-old female who presented to the emergency department after a fall at home landing on her left hip with severe pain and inability to ambulate. The patient had crawled to her phone to call EMS. She denied losing consciousness, CP, SOB, N/V, dizziness or hitting her head. Patient reports a past medical history of rheumatoid arthritis and COPD. Initial findings in the ED showed a LT Closed intertrochanteric fracture of the hip. Labs were unremarkable other then hypokalemia at 3.1. Ortho was consulted and patient was admitted to the medical unit and went for surgical intervention same day 04/18/2024. Patient was seen post surgery mild to moderate pain in no acute distress. Denied CP, SOB, N/V, ABD pain, or dizziness. 04/19/2024: Patient with no complaints state pain improved and site with no erythema, swelling, dry and intact. Patient had episodes of SOB last night but HX COPD improved with Duoneb treatment on RA now 04/20/2024: Patient comfortable with no complaints states pain is well controlled and she is working with PT well. Site non-tender, no swelling, clean and dry. No fevers over night and WBC down trend post-op. Currently waiting on Rehab placement. 04/21/2024: Patient doing well, labs stable denied hip pain. Patient did report some SOB but no different from baseline scheduled duonebs. Insurance authorization received but discharge cancelled because patient tested positive for COVID and [facility] would not take patient. Objective Data Vital Signs Vital Signs: Vital Signs - 24 hr 04/20/24 16:00 04/20/24 16:12 04/20/24 16:00 Temperature 97.0 F L Pulse Rate 95 98 102 H Respiratory Rate 18 18 18 Blood Pressure 121/59 L Pulse Oximetry 100 Oxygen Delivery 04/20/24 20:00 04/20/24 23:52 04/21/24 00:00 Temperature 99.0 F Pulse Rate 117 H 92 88 Respiratory Rate 18 18 18 Blood Pressure 134/65 Pulse Oximetry 98 Oxygen Delivery 04/21/24 00:00 04/20/24 20:00 04/21/24 04:00 Temperature 97.9 F 98.0 F Pulse Rate 94 88 Respiratory Rate 18 18 Blood Pressure 111/48 L 131/64 Pulse Oximetry 94 96 Oxyg
[2024-04-21 18:05] LABS: Influenza A QL RT-PCR Negative (Negative); Influenza B QL RT-PCR Negative (Negative); RSV RNA, RT-PCR Negative (Negative); SARS-CoV-2 RNA PCR Positive (Negative)
[2024-04-21] MEDS: HYDROcodone/acetaminophen (*CRX) 5-325 MG TABLET 1 TAB PO (20:33)
[2024-04-21] MEDS: BACLOFEN 5 MG TABLET PO (20:36)
[2024-04-22] MEDS: HYDROmorphone HCL INJ (*CRX) 1 MG/ML SYR IV PUSH (02:52)
[2024-04-22 06:00] VITALS: BP 151/67; PULSE 102; RESP 16; TEMP 36.4; O2SAT 98
[2024-04-22] MEDS: LEVOTHYROXINE SODIUM 25 MCG TABLET PO (06:20)
[2024-04-22 07:10] LABS: Basophils Absolute Auto 0.1 K/mm3 (0.0-0.1); Basophils Percent Auto 0.7 % (0.2-1.2); Eosinophils Absolute Auto 0.2 K/mm3 (0-0.3); Eosinophils Percent Auto 3.2 % (0-4.4); Hematocrit 27.6 % (37.0-47.0); Hemoglobin 8.9 g/dL (12.0-15.0); Immature Granulocyte Absolute 0.03 K/mm3 (0.00-0.031); Immature Granulocyte Percent A 0.4 % (0-0.5); Lymphocytes Absolute Auto 1.49 K/mm3 (0.9-3.2); Lymphocytes Percent Auto 19.8 % (18.3-44.2); Mean Corpuscular HGB Conc 32.2 g/dl (32-36); Mean Corpuscular Hemoglobin 32.2 pg (26-34); Mean Platelet Volume 10.9 fl (7.4-10.4); Monocytes Percent Auto 12.6 % (2.6-8.5); Neutrophils Absolute Auto 4.8 K/mm3 (1.3-6.7); Neutrophils Percent Auto 63.3 % (45.5-73.1); Platelet Count Result 238 k/mm3 (150-375); Red Blood Count 2.76 M/mm3 (4.2-5.4); Red Cell Distribution Width 15.8 % (11.5-14.5); White Blood Count 7.5 K/mm3 (4.5-10.0)
[2024-04-22 07:42] LABS: Alanine Aminotransferase 13 U/L (6-35); Albumin Level 3.1 g/dL (3.5-5.1); Alkaline Phosphatase 63 U/L (38-126); Anion Gap 5 mmol/L (4-12); Aspartate Amino Transferase 25 U/L (14-36); Bilirubin,Total 0.5 mg/dL (0.2-1.3); Blood Urea Nitrogen 31 mg/dL (7-17); Calcium 8.6 mg/dL (8.4-10.2); Carbon Dioxide 32 mmol/L (22-30); Chloride 98 mmol/L (98-107); Estimated Glomerular Filt Rate > 60; Glucose 102 mg/dL (65-110); Potassium 3.5 mmol/L (3.4-5.0); Sodium 135 mmol/L (137-145)
[2024-04-22] MEDS: FOLIC ACID 1 MG TABLET PO (07:55)
[2024-04-22] MEDS: DICLOFENAC SOD 75 MG TABLET.EC PO (07:55)
[2024-04-22] MEDS: hydroCHLOROthiazide 25 MG TABLET PO (07:56)
[2024-04-22] MEDS: LEFLUNOMIDE 10 MG TABLET PO (07:56)
[2024-04-22] MEDS: PANTOPRAZOLE 40 MG TABLET PO (07:56)
[2024-04-22] MEDS: FONDAPARINUX SODIUM 2.5 MG/0.5 ML SYRINGE SUB-Q (07:56)
[2024-04-22 08:00] VITALS: O2SAT 94
[2024-04-22] MEDS: IPRATROPIUM 0.5 MG/ALBUTEROL SULFATE 2.5 MG AMPUL.NEB 3 ML INHALATION (08:10)
[2024-04-22 08:11] VITALS: PULSE 104; RESP 20; O2SAT 94
[2024-04-22 08:21] VITALS: PULSE 100; RESP 20
--- NOTE | 2024-04-22 10:21 | PM.DS ---
DS: Admitting Diagnosis Discharge Date 04/22/2024 1030 Admitting Diagnosis Acute hip fracture DS: Discharge Diagnosis Discharge Diagnosis (1) Closed intertrochanteric fracture of left hip: Qualifiers: Encounter type: subsequent encounter Fracture alignment: displaced Fracture healing: with routine healing Qualified Code(s): S72.142D - Displaced intertrochanteric fracture of left femur, subsequent encounter for closed fracture with routine healing Code(s): S72.142A - Displaced intertrochanteric fracture of left femur, initial encounter for closed fracture Status: Acute (2) Acute hypokalemia: Code(s): E87.6 - Hypokalemia Status: Acute (3) COPD (chronic obstructive pulmonary disease): Code(s): J44.9 - Chronic obstructive pulmonary disease, unspecified Status: Acute (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 Status: Acute Plan Plan Closed intertrochanteric fracture of left hip Ortho consulted Surgery 04/18/2024 Pain control DVT prophylaxis SCD's PPI Incentive spirometer PT/OT post op Will need Rehab at Discharge lives alone Vitamin D level normal Hypokalemia-RESOLVED 3.1 POA replenished F/U BMP in the AM COPD: Supplemental Oxygen PRN DuoNebs as needed HX RA: Resume Diclofenac does not take Celecoxib anymore Code status: Full code per patient DVT prophylaxis: SCD/23 AC post-op per surgery Stress ulcer prophylaxis: Protonix 40 daily PT/OT notes: Post-op PT/OT pending Disposition: Admission to the medical unit post-op hip fracture repair. CC working on Rehab placement [place] would not take because she tested positive for COVID DS: Summary Hospital Course Hospital Course: Patient is an 84-year-old female who presented to the emergency department after a fall at home landing on her left hip with severe pain and inability to ambulate. The patient had crawled to her phone to call EMS. She denied losing consciousness, CP, SOB, N/V, dizziness or hitting her head. Patient reports a past medical history of rheumatoid arthritis and COPD. Initial findings in the ED showed a LT Closed intertrochanteric fracture of the hip. Labs were unremarkable other then hypokalemia at 3.1. Ortho was consulted and patient was admitted to the medical unit and went for surgical intervention same day 04/18/2024. Patient was seen post surgery mild to moderate pain in no acute distress. Denied CP, SOB, N/V, ABD pain, or dizziness. 04/19/2024: Patient with no complaints state pain improved and site with no erythema, swelling, dry and intact. Patient had episodes of SOB last night but HX COPD improved with Duoneb treatment on RA now 04/20/2024: Patient comfortable with no complaints states pain is well controlled and she is working with PT well. Site non-tender, no swelling, clean and dry. No fevers over night and WBC down trend post-op. Currently waiting on Rehab placement. 04/21/2024: Patient doing well, labs stable denied hip pain. Patient did report some SOB but no different from baseline scheduled duonebs. Insurance authorization received and patient was discharged to [facility] for continued PT/OT, ASA BID for DVT prophylaxis 04/22/2024 Patient is doing well. She was sitting in the chair. She is comfortable. Her pain is in her knee. She denies any chest pain, shortness of breath, nausea, vomiting, diarrhea, constipation. She is stable for rehab and is going to [facility]. Currently she is doing well and is stable for discharge. Status at Discharge Functional status at discharge: uses cane/walker Overall status at discharge: patient is progressing back to baseline Time Spent with Patient Time attestation: Total time spent providing and/or coordinating discharge services: 48 minutes Time spent: Greater than 30 minutes Specific discharge activities:
[2024-04-22 14:00] VITALS: BP 133/61; PULSE 107; RESP 14; TEMP 36.3; O2SAT 98
== END 2024-04-22 14:31 | DRG 480 ==
LOC: ANHED 04-18 00:18 → ANH3MEDSUR 04-18 00:44
PROVIDERS: Nurse Practitioner Family; Orthopaedic Surgery; Admitting Provider Internal Medicine; Emergency Provider Emergency Medicine; PCP Internal Medicine; Visit Provider Nurse Practitioner
PROC: 0QSC36Z Reposition Left Lower Femur with Intramedullary Internal Fixation Device, Percutaneous Approach (ICD-10-PCS; CPT 27245; principal; 2024-04-18 11:00)
DX: S72.142A Displaced intertrochanteric fracture of left femur, initial encounter for closed fracture (principal); U07.1 COVID-19; W01.0XXA Fall on same level from slipping, tripping and stumbling without subsequent striking against object, initial encounter; E87.6 Hypokalemia; J44.9 Chronic obstructive pulmonary disease, unspecified; E66.9 Obesity, unspecified; Z68.31 Body mass index [BMI] 31.0-31.9, adult; M05.20 Rheumatoid vasculitis with rheumatoid arthritis of unspecified site
CPT/HCPCS: 36415; 71045; 71250; 73502; 80048; 80053; 81003; 82306; 83735; 85025; 85610; 85730; 86850; 86900; 86901; 87635; 87637; 93005; 94640; 96360; 97110; 97116; 97161; 97165; 97530; 97535; 99199; 99285; A9270; C1713; J0690; J1100; J1170; J1652; J1885; J2405; J2704; J3010; J3475; J7030; J7120

== ENCOUNTER 2024-06-11 09:36 | Outpatient (CLI) | payer MEDICARE, SELFPAY ==
--- NOTE | ~2024-06-11 | CT_ITS ---
EXAMINATION: CT abdomen pelvis wo con DATE: 06/11/2024 09:53 INDICATION: Kidney mass. TECHNIQUE: Computed tomography (CT) of the abdomen and pelvis was performed without intravenous contr ast. Automated exposure control and iterative reconstruction technique were employed. The dose-length product was 406.04 mGy-cm. COMPARISON: Chest CT 04/17/2024 FINDINGS: The visualized portions of the lung bases demonstrate a large sliding hiatal hernia contain ing colon and nearly all of the stomach. There is mild atelectasis in the lungs. A calcified right vernon ng nodule is consistent with old granulomatous disease. No pleural effusion. The heart size is normal . No pericardial effusion. The liver is normal. There are gallstones in the gallbladder, which is nor mal in size. Calcifications in the spleen are consistent with old granulomatous disease. The pancreas , adrenal glands, and kidneys are normal. There is a right-sided inguinal hernia containing nonobstru cted small bowel. There is diverticulosis of the colon without evidence of diverticulitis. The append ix is not visualized. There is calcified atherosclerosis of the aorta and many of the other arteries. There are no pathologically enlarged lymph nodes. There is no free intraperitoneal fluid. There are chronic insufficiency fractures of the sacrum and right superior and inferior pubic rami. There is in ternal fixation of proximal left femur. There is thoracolumbar levoscoliosis and severe spondylosis. IMPRESSION: 1. Normal kidneys. 2. Large sliding hiatal hernia. 3. Right inguinal hernia containing nonobstructed small bowel. Reviewed, dictated and finalized at location A.
== END 2024-06-11 09:37 | disposition home or self-care (01) ==
PROVIDERS: PCP Internal Medicine; Visit Provider Internal Medicine
DX: N28.89 Other specified disorders of kidney and ureter (principal); K44.9 Diaphragmatic hernia without obstruction or gangrene; K40.90 Unilateral inguinal hernia, without obstruction or gangrene, not specified as recurrent
CPT/HCPCS: 74176